=== PATIENT | male | born 1995 | race Caucasian/White ===

== ENCOUNTER 2023-11-05 17:00 | Emergency (ER) | payer BC, OTHER ==
[2023-11-05] MEDS ORDERED: Sodium Chloride 0.9% 10 ML Syringe FLUSH PRN (17:15)
[2023-11-05 18:05] LABS: INR 1.2 (0.9-1.1)
[2023-11-05 18:07] LABS: ALBUMIN 4.1 g/dL (3.4-5.0); ANION GAP 10.5 meq/L (7-15); BILIRUBIN TOTAL 0.7 mg/dL (0.2-1.0); CALCIUM 9.2 mg/dL (8.5-10.1); CARBON DIOXIDE,CO2 28.5 mmol/L (21.0-32.0); CREATININE 1.41 mg/dL (0.51-1.17); EST CRCL DRUG DOSING (CG) 80.54 mL/min; MAGNESIUM 1.9 mg/dL (1.8-2.4); POTASSIUM,K 3.8 mmol/L (3.5-5.1)
[2023-11-05] MEDS: Lactated Ringers 1,000 ML IV ONE (18:12)
[2023-11-05 18:26] LABS: HEMATOCRIT 41.5 % (39.0-49.0); HEMOGLOBIN 14.1 g/dL (13.1-16.8); MEAN CORPUSCULAR HEMOGLOBIN 29.3 pg (28.2-33.3); MEAN CORPUSCULAR VOLUME 86.1 fL (84.0-98.0); PLATELET COUNT,PLT 131 K/uL (150-350); RED BLOOD CELL COUNT 4.82 M/uL (4.33-5.41); RED CELL DISTRIBUTION WIDTH 13.1 % (11.2-14.1); WHITE BLOOD CELL COUNT,WBC 13.2 K/uL (4.0-10.2)
[2023-11-05 18:48] LABS: BAND PERCENT MAN 6; LYMPHOCYTES % ATYPICAL MANUAL 38; LYMPHOCYTES PERCENT MAN 32; MONOCYTES PERCENT MAN 2; SEG NEUTROPHILS PERCENT MAN 22
[2023-11-05] MEDS: Ibuprofen 600 MG Tab PO ONE (19:40)
[2023-11-05] MEDS: Acetaminophen 500 MG Tab PO ONE (19:41)
== END 2023-11-05 19:46 | disposition home or self-care (01) ==
LOC: LL.ED 17:00
DX: B27.90 Infectious mononucleosis, unspecified without complication (principal); Z79.51 Long term (current) use of inhaled steroids
CPT/HCPCS: 36415; 70450; 72125; 80053; 83605; 83735; 85025; 85610; 86140; 86308; 87040; 96360; 99283; 99284-25; A9270-GY; J7120; U0002